=== PATIENT | female | born 1965 | race Caucasian/White ===

== ENCOUNTER 2021-04-19 15:45 | Emergency (ER) | payer OTHER ==
[~2021-04-19] VITALS: Ht 157.5 cm; Wt 51.7 kg
[~2021-04-19 15:45] MED LIST: CHILDREN'S ADVI50 MG PO
[2021-04-19 16:21] LABS: ABSOLUTE NEUTROPHILS 7.4 thou/uL (1.4-8.2); BASOPHILS 0.3 % (0.0-2.0); EOSINOPHILS 1.2 % (0.0-3.0); HEMATOCRIT 36.3 % (37.0-47.0); HEMOGLOBIN 12.1 gm/dL (12.0-15.0); LYMPHOCYTES 13.7 % (24.0-44.0); MCH 31.7 pg (26.0-34.0); MCHC 33.4 g/dL (28.0-37.0); MONOCYTES 8.2 % (1.0-8.0); PLATELET COUNT 264 thou/uL (150-400); POLYS 76.6 % (36.0-66.0); RBC 3.82 mil/uL (4.20-5.00); RDW 12.4 % (10.5-14.5); WBC 9.7 thou/uL (4.0-11.0)
[2021-04-19 16:40] LABS: CALCIUM 8.7 mg/dL (8.5-10.1); CREATININE 0.6 mg/dL (0.6-1.0); POTASSIUM 3.9 mmol/L (3.5-5.1)
[2021-04-19 16:48] LABS: ALBUMIN 3.7 g/dL (3.4-5.0); TOTAL BILIRUBIN 0.4 mg/dL (0.2-1.0); TOTAL PROTEIN 7.1 g/dL (6.4-8.2)
[2021-04-19] MEDS ORDERED: ZPAK PO (17:19)
[2021-04-19 17:49] VITALS: BP 122/73
--- NOTE | 2021-04-21 08:10 | EKG ---
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 : 1965 Requested By: Mabel Freedman Order Number: [id number] MD: Peter Loredo Measurements Intervals Slick Rate: 99 P: 41 MN: 120 QRS: 3 QRSD: 84 T: 42 QT: 333 QTc: 428 Interpretive Statements Sinus rhythm Normal tracing Compared to ECG 04/19/2009 07:46:01 Right-axis deviation no longer present Electronically Signed On 04-21-2021 8:10:28 [employer]MENT [employer] by Peter Loredo [email or web address] <ELECTRONICALLY SIGNED> By: Peter Loredo MD, [facility] 04/21/21 0810 1618 1618 Peter Loredo MD, FACC /EPI
== END 2021-04-19 17:51 | disposition home or self-care (01) ==
LOC: ER 15:45
PROVIDERS: Nurse Practitioner
DX: J18.1 Lobar pneumonia, unspecified organism (principal); Z20.822 Contact with and (suspected) exposure to COVID-19; R07.81 Pleurodynia; Z98.890 Other specified postprocedural states; Z88.5 Allergy status to narcotic agent